=== PATIENT | female | born 1980 ===

== ENCOUNTER 2021-11-19 11:20 | Emergency (ER) | payer OTHER ==
[2021-11-19] MEDS ORDERED: ASPIRIN 81 MG PO STA (12:32)
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
[2021-11-19 12:51] LABS: Basophils % (A) 1 %; Eosinophils # (A) 0.1 k/uL (0-0.7); Eosinophils % (A) 2 %; HCT 32.6 % (34.0-46.0); HGB 10.6 gm/dL (11.4-16.0); Hypochromasia Slight; Lymphocytes # (A) 1.7 k/uL (1.0-4.8); Lymphocytes % (A) 36 %; MCH 29.1 pg (25.0-35.0); MCHC 32.3 g/dL (31.0-37.0); Mean Platelet Volume 8.1; Monocytes # (A) 0.2 k/uL (0-1.0); Monocytes % (A) 5 %; Neutrophils # (A) 2.6 k/uL (1.3-7.7); Neutrophils % (A) 55 %; Platelet Count 256 k/uL (150-450); RBC 3.62 m/uL (3.80-5.40); RDW 13.9 % (11.5-15.5); WBC 4.7 k/uL (3.8-10.6)
[2021-11-19 13:04] LABS: African American GFR (CKD) >90 (>60 ml/min/1.73 sqM); Anion Gap 13 mmol/L; Blood Urea Nitrogen 9 mg/dL (7-17); Calcium 9.2 mg/dL (8.4-10.2); Carbon Dioxide 19 mmol/L (22-30); Chloride 105 mmol/L (98-107); Glucose 61 mg/dL (74-99); Non-African American GFR(CKD) >90 (>60 ml/min/1.73 sqM); Sodium 137 mmol/L (137-145)
--- NOTE | 2021-11-19 13:26 | XR ---
EXAMINATION TYPE: XR chest 1V portable DATE OF EXAM: 11/19/2021 COMPARISON: NONE HISTORY: Chest pain TECHNIQUE: Single frontal view of the chest is obtained. FINDINGS: There is no focal air space opacity, pleural effusion, or pneumothorax seen. The cardiac silhouette size is within normal limits. The osseous structures are intact. Heart size normal. No o vert failure. IMPRESSION: No acute process.
[2021-11-19 15:17] VITALS: BP 144/90; PULSE 87; RESP 20; TEMP 98.3
== END 2021-11-19 15:00 | disposition home or self-care (01) ==
LOC: EC 11:20
DX: R07.9 Chest pain, unspecified (principal); I10 Essential (primary) hypertension; Z88.8 Allergy status to other drugs, medicaments and biological substances
CPT/HCPCS: 36415; 71045; 80048; 84484; 85025; 93005; 99285

== ENCOUNTER 2021-11-22 11:13 | Emergency (ER) | payer OTHER ==
--- NOTE | 2021-11-22 12:47 | ED ---
General Adult HPI - General Chief complaint: ENT Stated complaint: throat pain Time Seen by Provider: 11/22/21 12:16 Source: patient, RN notes reviewed, old records reviewed Mode of arrival: ambulatory Limitations: no limitations - History of Present Illness Initial comments: She is a 41-year-old female who was not vaccinated for COVID-19 with no signif icant past medical history lives in the home [facility] with her 4 children presents emergency department over concern for a sore throat. Her children have been having nausea, vomiting, "tummy aches" for the last 3-4 days. She is concerned that her sick and she may be developing it. Denies any nausea or vomiting. Denies any diarrhea. Has no other acute complaint at this time. Was seen last week for chest pain, however she was secondary to being noncompliant with her blood pressure medication. She has had no symptoms since. She was discharged home in good condition. She denies any fevers, chills. States there are others at the [facility] with similar symptoms. States her children are all up-to-date on vaccines, but no one has the Covid 19 vaccine. No other acute complaints at this time. Presents for evaluation, with primary complaint of sore throat. Endorses mild rhinorrhea. Denies cough. Denies shortness of breath. Denies chest pain. - Related Data Home Medications Medication Instructions Recorded Confirmed amLODIPine [Norvasc] 10 mg PO DAILY 11/19/21 11/19/21 Previous Rx's Medication Instructions Recorded amLODIPine [Norvasc] 10 mg PO DAILY 14 Days #14 tablet 11/19/21 Ondansetron Odt [Zofran Odt] 4 mg PO Q8HR PRN 3 Days #9 tab 11/22/21 Allergies Allergy/AdvReac Type Severity Reaction Status Date / Time chloroquine Allergy Itching Verified 11/19/21 13:11 Review of Systems ROS Statement: Those systems with pertinent positive or pertinent negative responses have been documented in the HPI. Review of Systems: CONST: Denies fever EYES: Denies blurry vision ENT: Endorses sore throat. C/V: Denies Chest pain RESP: Denies shortness of breath GI: Denies abdominal pain : Denies dysuria SKIN: Denies rash. MSK: Denies joint pain. NEURO: Denies headache ROS Other: All systems not noted in ROS Statement are negative. Past Medical History Past Medical History: Hypertension History of Any Multi-Drug Resistant Organisms: None Reported Past Surgical History: Section Past Psychological History: No Psychological Hx Reported Smoking Status: Never smoker Past Alcohol Use History: None Reported Past Drug Use History: None Reported General Exam - General Exam Comments Initial Comments: General: Appears in no acute distress. Afebrile. HEAD: Normal with no signs of head trauma. EYES: PERRLA, EOMI, conjunctiva normal, no discharge. ENT: Hearing grossly intact, normal oropharynx. Posterior oropharynx is erythematous with no exudates. Bilateral TMs within normal limits. RESPIRATORY: Clear breath sounds bilaterally. No wheezes, rales, or rhonchi. C/V: Regular rate and rhythm. S1 and S2 auscultated, no edema, peripheral pulses 2+ and intact throughout ABD: Abd is soft, nontender, nondistended EXT: No obvious deformity. SKIN: No rashes or lesions observed on exposed skin. NEURO: Alert and oriented 4. Limitations: no limitations Course Vital Signs 11/22/21 11:57 Temperature 98.8 F Pulse Rate 79 Respiratory 18 Rate Blood Pressure 134/80 O2 Sat by Pulse 99 Oximetry Medical Decision Making - Medical Decision Making Based on patient's presentation and physical exam, I'm concerned for possible viral etiology for her current symptoms. This includes possibility of Covid as well as also possibility of strep throat. Would like to obtain COVID, strep throat sweats. Patient was in agreement this plan. She otherwise appears well with no vital sign abnormalities. They're within normal limits. She was in agreement this plan. I believe that further laboratory studies or imaging are required at this time. Covid swab are negative. Strep throat swab is negative. I discussed results of the patient. I believe it is safer to be discharged home. She can use Tylenol and Motrin for pain control. Patient was in agreement this plan. She is tolerating oral intake at this time. I instructed the patient to follow up with their PCP in the next 3 days. . I explained that the patient should return to the emergency department if they experience any worsening symptoms. Strict return precautions were discussed with the patient. The patient expressed understanding of these instructions. I answered all questions that the patient had. The patient was discharged home in good condition with their prescriptions and follow up information. - Lab Data Lab Results 11/22/21 11/22/21 Range/Units 12:59 12:59 Coronavirus (PCR) Not Detected (Not Detectd) Group A Strep Rapid Negative (Negative) Disposition Clinical Impression: Viral syndrome, Pharyngitis Disposition: HOME SELF-CARE Condition: Good Instructions (If sedation given, give patient instructions): Pharyngitis (ED) Prescriptions: Ondansetron Odt [Zofran Odt] 4 mg PO Q8HR PRN 3 Days #9 tab PRN Reason: Nausea Is patient prescribed a controlled substance at d/c from ED?: No Referrals: None,Stated [Primary Care Provider] - 1-2 days Karen Meza MD [REFERRING] - 1-2 days
[2021-11-22 14:55] VITALS: BP 125/78; PULSE 78; RESP 16; TEMP 98.1
== END 2021-11-22 14:54 | disposition home or self-care (01) ==
LOC: EC 11:13
DX: B34.9 Viral infection, unspecified (principal); J02.9 Acute pharyngitis, unspecified; I10 Essential (primary) hypertension; Z20.822 Contact with and (suspected) exposure to COVID-19; Z88.8 Allergy status to other drugs, medicaments and biological substances
CPT/HCPCS: 87081; 87430; 87635; 99283